=== PATIENT | male | born 1990 | race Caucasian/White ===

== ENCOUNTER 2018-12-29 19:09 | Emergency (ER) | payer SELFPAY ==
[~2018-12-29] VITALS: Ht 188 cm; Wt 91.8 kg
[2018-12-29 19:24] VITALS: BP 131/86; TEMP 98.6
[2018-12-29] MEDS ORDERED: FLEXERIL 1010 MG/TAB PO (20:19)
[2018-12-29 20:40] VITALS: PULSE 88
== END 2018-12-29 20:40 | disposition home or self-care (01) ==
LOC: COL.ER 19:09
DX: M94.0 Chondrocostal junction syndrome [Tietze] (principal); F12.90 Cannabis use, unspecified, uncomplicated; F43.10 Post-traumatic stress disorder, unspecified; Z88.0 Allergy status to penicillin; Z87.891 Personal history of nicotine dependence
CPT/HCPCS: J1885

== ENCOUNTER → 2018-12-29 | Outpatient (CLI) | payer SELFPAY ==
[~2018-12-29] MED LIST: FLEXERIL 1010 MG/TAB PO
== END ==
LOC: COL.LAB 16:11
DX: R07.9 Chest pain, unspecified (principal)

== ENCOUNTER 2019-01-05 15:46 | Emergency (ER) | payer SELFPAY ==
[~2019-01-05] VITALS: Ht 193 cm; Wt 91.8 kg
[2019-01-05 15:49] VITALS: BP 138/91; TEMP 98.6
[2019-01-05] MEDS ORDERED: NAPROSYN500 MG PO (16:55)
[2019-01-05] MEDS ORDERED: FLEXERIL 1010 MG/TAB PO (16:55)
[2019-01-05 17:10] VITALS: PULSE 66
== END 2019-01-05 17:11 | disposition home or self-care (01) ==
LOC: COL.ER 15:46
DX: S29.011A Strain of muscle and tendon of front wall of thorax, initial encounter (principal); K21.9 Gastro-esophageal reflux disease without esophagitis; F17.290 Nicotine dependence, other tobacco product, uncomplicated; F12.90 Cannabis use, unspecified, uncomplicated; F43.10 Post-traumatic stress disorder, unspecified; X58.XXXA Exposure to other specified factors, initial encounter